=== PATIENT | female | born 1980 | race Caucasian/White ===

== ENCOUNTER 2016-08-17 20:49 | Emergency (ER) | payer OTHER ==
[2016-08-17] MEDS ORDERED: diphenhydrAMINE 25 MG CAP PO ONE (20:58)
[2016-08-17] MEDS ORDERED: predniSONE 20 MG TAB PO ONE (20:58)
[2016-08-17] MEDS ORDERED: FAMOTIDINE 20 MG TAB PO ONE (20:58)
--- NOTE | 2016-08-17 20:59 | EDPHY ---
H & P Stated Complaint: allergic reaction unknown subsatnce - Personal History LMP (Females 10-55): 15-21 Days Ago Current Tetanus/Diphtheria Vaccine: Yes Current Tetanus Diphtheria and Acellular Pertussis (TDAP): Yes Tetanus Vaccine Date: 12/2015 - Medical/Surgical History Hx Asthma: Yes Hx Chronic Respiratory Disease: No Hx Diabetes: No Hx Cardiac Disease: No Hx Renal Disease: No Hx Cirrhosis: No Hx Alcoholism: No Hx HIV/AIDS: No Hx Splenectomy or Spleen Trauma: No Other PMH: asthma, - Social History Smoking Status: Former smoker Constitutional: Initial Vital Signs Temperature (C) 36.7 C 08/17/16 20:50 Heart Rate 105 H 08/17/16 20:50 Respiratory Rate 18 08/17/16 20:50 Blood Pressure 117/72 08/17/16 20:50 O2 Sat (%) 94 08/17/16 20:50 O2 Delivery Mode Room Air Allergies/Adverse Reactions: No Known Allergies Allergy (Verified 08/17/16 20:52) Home Medications: Medication Instructions Recorded Blood Builder Vit w/ Iron 1 tab PO DAILY 01/29/16 Calcium [HI-LORETTA] 2 tab PO DAILY 01/29/16 Dha 1 tab PO DAILY 01/29/16 1 tab PO DAILY 01/29/16 Vitamin D3 1 tab PO DAILY 01/29/16 Ibuprofen [Motrin (*)] 600 mg PO Q6 PRN #30 tab 01/30/16 EPINEPHRINE [EPIPEN] 0.3 mg IM ONCE #2 syr 08/17/16 Famotidine [Pepcid 20 MG (OTC)] 20 mg PO DAILY #10 tab 08/17/16 predniSONE 40 mg PO DAILY #10 tab 08/17/16 Medical Decision Making ED Course/Re-evaluation: CHIEF COMPLAINT: Anaphylaxis. HISTORY OF PRESENT ILLNESS: The patient is a 36-year-old female who presents with acute allergic reaction that began 30 minutes ago. She is flushed but has no other symptoms. She does not know what she is allergic to. Her family did recently rescue a cat and she has gotten a few hives over the past week. She denies shortness of breath, angioedema, difficulty swallowing, or other complaints. REVIEW OF SYSTEMS: A 10 point review of systems was performed and is negative with the exception of the elements mentioned in the history of present illness. PHYSICAL EXAM: HR, BP, O2 Sat, RR. Temp noted General Appearance: Alert, well hydrated, Very flushed appearing. Anxious. Head: Atraumatic without scalp tenderness or obvious injury Eyes: Pupils equal, round, reactive to light and accommodation, EOMI, no trauma , no injection. Ears: Clear bilaterally, no perforation, normal landmarks Nose: Atraumatic, no rhinorrhea, clear. Throat: There is no erythema or exudates, no lesions, normal tonsils, mucus membranes moist. Erythema in throat. Uvula, tongue, and lips normal. Neck: Supple, 2+ carotid upstroke, nontender, no lymphadenopathy. Respiratory: No retractions, no distress, no wheezes, and no accessory muscle use. Lungs are clear to auscultation bilaterally. Cardiovascular: Regular rate and rhythm, no murmurs, rubs, or gallops. Bilateral carotid, radial, dorsalis pedis, and posterior tibial pulses intact. Good capillary refill all extremities. Gastrointestinal: Abdomen is soft, nontender, non-distended, no masses, no rebound, no guarding, no peritoneal signs. Musculoskeletal: Normal active ROM of all extremities, atraumatic. Neurological: Alert, appropriate, and interactive. The patient has normal DTRs and non-focal cranial nerves, motor, sensory, and cerebellar exam. Skin: No rashes, good turgor, no nodules on palpation. Skin erythematous. Past medical history:Denies. Past surgical history:Denies. Family history:N/A. Social history:, mother. DIAGNOSTICS/PROCEDURES/CRITICAL CARE TIME: DIFFERENTIAL DIAGNOSIS: The differential diagnosis included but was not limited to angioedema, anaphylaxis, anaphylactoid reaction, urticarial reaction, and other infectious causes for skin rash. MEDICAL DECISION MAKIN-year-old female presents with acute allergic reaction. She is flushed and her throat is erythematous. She shows no swelling or redness of the uvula, tongue, or lips. She is not having any respiratory distress. No difficulty swallowing. She does not know what she is allergic to but believes it may be the cat they recently adopted and let out of quarantine. .3ml IM Epinephrine, 60mg PO Prednisone, 50mg PO Benadryl, and 40mg PO Pepcid administered for allergic reaction. We will monitor her in the ER before discharge. I have referred her to an vascular nurse. 2203: Reassessed patient. She feels much better and is ready to go home. - Data Points Medications Given: Discontinued Medications Diphenhydramine HCl (Benadryl) 50 mg PO EDNOW ONE Stop: 08/17/16 20:59 Last Admin: 08/17/16 21:07 Dose: 50 mg Epinephrine HCl (Epinephrine) 0.3 mg IM EDNOW ONE Stop: 08/17/16 20:59 Last Admin: 08/17/16 21:07 Dose: 0.3 mg Famotidine (Pepcid) 40 mg PO EDNOW ONE Stop: 08/17/16 20:59 Last Admin: 08/17/16 21:08 Dose: 40 mg Prednisone (Prednisone) 60 mg PO EDNOW ONE Stop: 08/17/16 20:59 Last Admin: 08/17/16 21:08 Dose: 60 mg Departure - Departure Disposition: Home, Routine, Self-Care Clinical Impression: Allergic reaction Qualifiers: Encounter type: initial encounter Qualified Code(s): T78.40XA - Allergy, unspecified, initial encounter Condition: Good Instructions: Anaphylaxis (ED) Additional Instructions: Take Pepcid and Prednisone as prescribed for the next [address] Gracia, vascular nurse, tomorrow to set up an appointment. Return to the emergency department for any serious worsening of condition. Referrals: Snehal Veras MD [Primary Care Provider] - As per Instructions Chichi Gracia MD [Medical Doctor] - As per Instructions Prescriptions: EPINEPHRINE [EPIPEN] 0.3 mg IM ONCE #2 syr Famotidine [Pepcid 20 MG (OTC)] 20 mg PO DAILY #10 tab predniSONE 40 mg PO DAILY #10 tab Report Scribed for: Emilio Ball Report Scribed by: Ramon Trevizo Date of Report: 08/17/16 Time of Report: 20:59
[2016-08-17 22:16] VITALS: BP 107/65; PULSE 73; RESP 16; TEMP 98.2; O2SAT 98
== END 2016-08-17 22:15 | disposition home or self-care (01) ==
DX: T78.40XA Allergy, unspecified, initial encounter (principal); J45.909 Unspecified asthma, uncomplicated; Z87.891 Personal history of nicotine dependence
CPT/HCPCS: J0171

== ENCOUNTER → 2017-11-17 | Outpatient (CLI) | payer OTHER | LOC: FIMAGING 16:24 | DX: O03.4 Incomplete spontaneous abortion without complication (principal) ==

== ENCOUNTER → 2018-08-11 | Outpatient (CLI) | payer OTHER | LOC: FIMAGING 09:45 | PROVIDERS: ATTEND Advanced Practice Midwife | DX: O09.522 Supervision of elderly multigravida, second trimester (principal); Z3A.19 19 weeks gestation of pregnancy ==